=== PATIENT | male | born 1960 | race Caucasian/White ===

== ENCOUNTER 2024-04-18 09:57 | Outpatient (REF) | payer OTHER, SELFPAY ==
[2024-04-18 11:25] LABS: Prostate Specific Antigen 4.78 ng/mL (<0.05-4.0)
== END 2024-04-18 09:58 | disposition home or self-care (01) ==
LOC: HO.LAB 09:57
PROVIDERS: Visit Provider Physician Assistant
DX: R97.20 Elevated prostate specific antigen [PSA] (principal); Z12.5 Encounter for screening for malignant neoplasm of prostate
CPT/HCPCS: 36415; 84153

== ENCOUNTER 2024-10-19 10:41 | Outpatient (REF) | payer OTHER, SELFPAY ==
[2024-10-19 12:11] LABS: Prostate Specific Antigen 4.77 ng/mL (<0.05-4.0)
== END 2024-10-19 10:42 | disposition home or self-care (01) ==
LOC: HO.LAB 10:41
PROVIDERS: Visit Provider Physician Assistant
DX: R97.20 Elevated prostate specific antigen [PSA] (principal); Z12.5 Encounter for screening for malignant neoplasm of prostate
CPT/HCPCS: 36415; 84153